=== PATIENT | male | born 1975 | race Caucasian/White ===

== ENCOUNTER 2017-09-09 02:50 | Emergency (ER) | payer OTHER ==
[~2017-09-09] VITALS: Ht 198.1 cm; Wt 132.0 kg
[~2017-09-09 02:50] MED LIST: ASPI325T PO; CARA1TAB2 PO; CARD240T2 PO; DICY1TAB26 PO; METO25 PO; MULT400T OR; PANT20 PO
[2017-09-09 02:52] VITALS: BP 203/112; PULSE 97; RESP 18; TEMP 97.6; O2SAT 96
[2017-09-09 02:53] VITALS: BP 203/112; PULSE 97; RESP 18; TEMP 99; O2SAT 96
--- NOTE | 2017-09-09 03:25 | PD ---
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 The patient states that he is not sure of how exactly he had injured himself. He states that review of the tape indicates that he had struck his elbow on the floor. He denies any numbness, tingling or focal weakness. He complains of moderate pain worse with any extends or flexes his arm. No injury to his hand, or shoulder. PFSH Past Medical History Narrative Medical Hypercholesterolemia, A. fib, hypertension Arthritis: No Asthma: No Atrial Fibrillation: Yes Blood Disorders: No Heart Rhythm Problems: Yes Cancer: No Cardiovascular Problems: Yes High Cholesterol: Yes Chemotherapy: No Chest Pain: Yes Congestive Heart Failure: No COPD: No Cerebrovascular Accident: No Diminished Hearing: No Endocrine: No Gastrointestinal Disorders: Yes GERD: No Genitourinary: No Headaches: Yes Hepatitis: No Hiatal Hernia: No Hypertension: Yes Immune Disorder: No Kidney Stones: No Musculoskeletal: Yes Neurologic: Yes Psychiatric: No Reproductive: No Respiratory: No Immunizations Current: Yes Migraines: Yes Myocardial Infarction: No Radiation Therapy: No Renal Failure: No Seizures: No Sleep Apnea: No Ulcer: No Tetanus Vaccination: > 5 Years Influenza Vaccination: No Past Surgical History Narrative Surgical Right knee arthroscopy. Abdominal Surgery: No Appendectomy: No Cardiac Surgery: No Cholecystectomy: No Ear Surgery: No Endocrine Surgery: No Eye Surgery: No Genitourinary Surgery: No Gynecologic Surgery: No Oral Surgery: No Thoracic Surgery: No Social History Alcohol Use: Yes ("OCCASIONALLY") Tobacco Use: No Substance Use: No Allergies-Medications (Allergen,Severity, Reaction): Coded Allergies: No Known Allergies (Verified Adverse Reaction, Unknown, 09/09/17) Reported Meds & Prescriptions Reported Meds & Active Scripts Active Bentyl (Dicyclomine HCl) 20 Mg Tab 20 Mg PO Q8 Carafate (Sucralfate) 1 Gm Tab 1 Gm PO TIDACHS Take with water on an empty stomach. To reduce the potential of adversely affecting the absorption of other drugs, take other drugs 2 hours prior to Sucralfate. Protonix (Pantoprazole Sodium) 20 Mg Tab 20 Mg PO DAILY Reported Multaq (Dronedarone) 400 Mg Tab 400 Mg OR Metoprolol Tartrate 25 Mg Tab 25 Mg PO Cardizem La (Diltiazem HCl) 240 Mg Tab 240 Mg PO Aspirin 325 Mg Tab 325 Mg PO DAILYPRN Review of Systems Except as stated in HPI: all other systems reviewed are Neg Physical Exam Narrative GENERAL: This is a well-nourished, well-developed patient, in no apparent distress. SKIN: No rashes, ecchymoses or lesions. Warm and dry. HEAD: Atraumatic. Normocephalic. EYES: PERRL, EOMI, no discharge or injection. No scleral icterus. EARS: Clear NOSE: Nasal turbinates appear normal. THROAT: Mucosa pink and moist. Airway patent. NECK: Trachea midline. supple, moves head freely. No bony tenderness. LUNGS: Clear to auscultation. CV: Regular in rhythm. ABDOMEN: Soft nontender. Back: No bony tenderness. Moves freely. EXT: No clubbing cyanosis or edema. Examination of left upper extremity reveals tenderness and swelling over the olecranon. There is no pain over the medial lateral compartments of the elbow. The skin is intact. No pain in the hand, wrist, shoulder or clavicle. He has full range of motion but has pain at end range. The right upper extremity as well as lower extremities are without localizing bony tenderness or deformity. Neurovascular intact. Data Data Last Documented VS Vital Signs Date Time Temp Pulse Resp B/P (MAP) Pulse Ox O2 Delivery O2 Flow Rate FiO2 09/09/17 02:53 99.0 97 18 203/112 (142) 96 Orders Orders Elbow, Complete (4 Vws) (09/09/17 03:09) Ice/Cold Pack (09/09/17 03:09) Ed Discharge Order (09/09/17 03:58) Naproxen (Naprosyn) (09/09/17 04:00) MDM Medical Decision Making Medical Screen Exam Complete: Yes Emergency Medical Condition: Yes Medical Record Reviewed: Yes Interpretation(s) Last 24 hours Impressions Elbow X-Ray 09/09/17 0306 Signed Impressions: Service Date/Time: Saturday, September 09, 2017 03:24 - CONCLUSION: Calcifications possibly within the triceps tendon chronic in nature without acute fracture. KYvette Hiro Shamlou, MD Differential Diagnosis MDM: High Differential diagnoses: Fracture, sprain, strain, dislocation, contusion, neurovascular injury Narrative Course X-ray of the left elbow is negative for bony injury. Patient has some calcifications chronically. Patient is given Naprosyn 500 mg p.o. This is left elbow contusion Diagnosis Primary Impression: Left elbow contusion Qualified Codes: S50.02XA - Contusion of left elbow, initial encounter Patient Instructions: General Instructions Additional Instructions: Rest. Elevation. Ice. Diclofenac. Follow-up with work comp doctor in 1 week. Med/Other Pt SpecificInfo: Prescription(s) given Scripts Diclofenac Sodium DR (Diclofenac Sodium DR) 75 Mg Tabdr 75 MG PO BID, #30 TAB 0 Refills Prov: Yfn Oconnor MD 09/09/17 Disposition: 01 DISCHARGE HOME Condition: Stable Baltazar Mijares Sep 09, 2017 03:24
--- NOTE | 2017-09-09 03:42 | RADRPT ---
EXAM DATE/TIME: 09/09/2017 03:24 [facility] COMPARISON: No previous studies available for comparison. INDICATIONS : Patient fell onto lateral elbow while at work. MEDICAL HISTORY : None. SURGICAL HISTORY : None. ENCOUNTER: Initial ACUITY: 1 day PAIN SCORE: 7/10 LOCATION: Left Elbow FINDINGS: Multiple areas of calcifications are present adjacent to the olecranon may be within the triceps tend on chronic in nature. Acute fracture is not seen. CONCLUSION: Calcifications possibly within the triceps tendon chronic in nature without acute fracture. Adrianne Ribeiro MD on September 09, 2017 at 3:40 Board Certified Radiologist. This report was verified electronically.
[2017-09-09] MEDS ORDERED: DICL75TA PO (03:59)
[2017-09-09] MEDS ORDERED: NAPROXEN 500 MG TAB PO ONE (04:00)
== END 2017-09-09 04:09 | disposition home or self-care (01) ==
LOC: NEPD 02:50
DX: S50.02XA Contusion of left elbow, initial encounter (principal); I48.91 Unspecified atrial fibrillation; E78.00 Pure hypercholesterolemia, unspecified; I10 Essential (primary) hypertension; Y35.811A Legal intervention involving manhandling, law enforcement official injured, initial encounter; Y92.149 Unspecified place in prison as the place of occurrence of the external cause; Y99.0 Civilian activity done for income or pay; Z79.82 Long term (current) use of aspirin; Z79.899 Other long term (current) drug therapy
CPT/HCPCS: 73080; 99283